=== PATIENT | female | born 1965 | race American Indian/Alaskan Native ===

== ENCOUNTER 2020-11-21 12:06 | Emergency (ER) | payer SELFPAY ==
[2020-11-21 14:07] VITALS: BP 149/71
--- NOTE | 2020-11-21 14:15 | Emergency Department Report ---
ED Headache HPI - General Chief Complaint: Headache Stated Complaint: PAIN IN THE LEFT NONDENOMINATIONAL, BEHIND EAR Time Seen by Provider: 11/21/20 14:03 - History of Present Illness Initial Comments: Patient is a 55-year-old female presents emergency room with complaints of a headache that began 10 days ago. She states it is located in the left frontal, left temporal, and behind the left ear. She states that she has associated rhinorrhea, sinus pressure, feeling like her left ear is clogged. Patient states that she went to another hospital emergency room as was advised that she had sinusitis but it had only been a few days and antibiotic therapy was not recommended at that time and she has been using Mucinex. She states that he does not feel like her symptoms are improving. She states that she has a history of sinus issues and has had to have a sinus surgery in the past. She denies any fever, nausea, vomiting, diarrhea, vision changes, numbness, weakness, neck stiffness. No other past medical history. No allergies to medications. Allergies/Adverse Reactions: Allergies No Known Allergies Allergy (Unverified 11/21/20 13:51) Home Medications: Ambulatory Orders Amoxicillin/Potassium Clav [Augmentin 875-125 Tablet] 1 each PO BID 10 Days #20 tablet 11/21/20 Fluticasone [Flonase] 1 spray NS QDAY #1 bottle 11/21/20 Naproxen [EC-Naproxen] 500 mg PO BID PRN #20 tablet. 11/21/20 ED Review of Systems ROS: Stated complaint: PAIN IN THE LEFT NONDENOMINATIONAL, BEHIND EAR Other details as noted in HPI Comment: All other systems reviewed and negative ED Past Medical Hx - Past Medical History Previous Medical History?: Yes Hx Hypertension: Yes Additional medical history: sinus infection - Surgical History Past Surgical History?: Yes Additional Surgical History: Tonsillectomy, Left ring finger surgery, Left elbow - Social History Smoking Status: Current Every Day Smoker Substance Use Type: Alcohol - Medications Home Medications: Home Medications Medication Instructions Recorded Confirmed Last Taken Type Amoxicillin/Potassium Clav 1 each PO BID 10 Days #20 tablet 11/21/20 Unknown Rx [Augmentin 875-125 Tablet] Fluticasone [Flonase] 1 spray NS QDAY #1 bottle 11/21/20 Unknown Rx Naproxen [EC-Naproxen] 500 mg PO BID PRN #20 tablet. 11/21/20 Unknown Rx ED Physical Exam - General Limitations: No Limitations General appearance: alert, in no apparent distress - Head Head exam: Present: atraumatic, normocephalic, other (no ttp or edema to the bilateral temporal artery region ) - Eye Eye exam: Present: normal appearance - ENT ENT exam: Present: normal orophraynx, mucous membranes moist, TM's normal bilaterally, normal external ear exam, other (mild edema and erythema of the nasal turbinates, ttp to the left frontal sinus) - Neck Neck exam: Present: normal inspection, full ROM. Absent: tenderness, meningismus - Respiratory Respiratory exam: Present: normal lung sounds bilaterally. Absent: respiratory distress, wheezes, rales, rhonchi, stridor, chest wall tenderness, accessory muscle use, decreased breath sounds, prolonged expiratory - Cardiovascular Cardiovascular Exam: Present: regular rate, normal rhythm, normal heart sounds. Absent: systolic murmur, diastolic murmur, rubs, gallop - Neurological Exam Neurological exam: Present: alert, oriented X3, CN II-XII intact, normal gait. Absent: motor sensory deficit - Psychiatric Psychiatric exam: Present: normal affect, normal mood - Skin Skin exam: Present: warm, dry, intact ED Course Vital Signs 11/21/20 13:44 Temperature 98.7 F Pulse Rate 57 L Respiratory 18 Rate Blood Pressure 149/71 O2 Sat by Pulse 100 Oximetry ED Medical Decision Making - Medical Decision Making Patient is a 55-year-old female presents emergency room with complaints of a headache that began 10 days ago. She states it is located in the left frontal, left temporal, and behind the left ear. She states that she has associated rhinorrhea, sinus pressure, feeling like her left ear is clogged. Patient states that she went to another hospital emergency room as was advised that she had sinusitis but it had only been a few days and antibiotic therapy was not recommended at that time and she has been using Mucinex. She states that he does not feel like her symptoms are improving. She states that she has a history of sinus issues and has had to have a sinus surgery in the past. She denies any fever, nausea, vomiting, diarrhea, vision changes, numbness, weakness, neck stiffness. No other past medical history. No allergies to medications. Vitals are stable. On exam:mild edema and erythema of the nasal turbinates, ttp to the left frontal sinus. Examination appears most consistent with acute sinusitis, symptoms have been ongoing greater than 10 days, antibiotic treatment is appropriate at this time. Patient given prescription for medications. Advised patient Please use medication as prescribed. May continue to take Mucinex as needed. Increase your fluid intake. Follow-up with your primary care doctor. Follow-up with earth science technical officer. R eturn to emergency room for any new or worsening symptoms or if symptoms are not improving. Critical care attestation.: If time is entered above; I have spent that time in minutes in the direct care of this critically ill patient, excluding procedure time. ED Disposition Clinical Impression: Acute sinusitis Qualifiers: Sinusitis location: frontal Recurrence: non-recurrent Qualified Code(s): J01.10 - Acute frontal sinusitis, unspecified Disposition: TO HOME OR SELFCARE Is pt being admited?: No Does the pt Need Aspirin: No Condition: Stable Instructions: Sinusitis, Adult, [id number] Additional Instructions: Please use medication as prescribed. May continue to take Mucinex as needed. Increase your fluid intake. Follow-up with your primary care doctor. Follow-up with earth science technical officer. Return to emergency room for any new or worsening symptoms or if symptoms are not improving. Prescriptions: Amoxicillin/Potassium Clav [Augmentin 875-125 Tablet] 1 each PO BID 10 Days #20 tablet Naproxen [EC-Naproxen] 500 mg PO BID PRN #20 tablet.dr ALCANTAR Reason: pain Fluticasone [Flonase] 1 spray NS QDAY #1 bottle Referrals: LEBRON MARTIN MD [Staff Physician] - 2-3 Days NABOR SALGADO MD [Staff Physician] - 2-3 Days [facility] [Provider Group] - 2-3 Days Time of Disposition: 14:13 Print Language: UKRAINIAN
== END 2020-11-21 14:37 | disposition home or self-care (01) ==
LOC: ED 12:06
DX: J01.90 Acute sinusitis, unspecified (principal); I10 Essential (primary) hypertension; F17.200 Nicotine dependence, unspecified, uncomplicated; Z90.89 Acquired absence of other organs; Z72.89 Other problems related to lifestyle; Z79.899 Other long term (current) drug therapy
CPT/HCPCS: 99282

== ENCOUNTER 2021-07-13 06:59 | Emergency (ER) | payer SELFPAY ==
[2021-07-13 08:25] VITALS: BP 183/85
--- NOTE | 2021-07-13 08:29 | Emergency Department Report ---
Chief Complaint: Eye Problems Stated Complaint: HEADACHE/SEEING FLASHES OF LIGHT Time Seen by Provider: 07/13/21 08:28 - HPI History of Present Illness: WOKE UP WITH EYE FLOATER THIS AM NOW GONE IT SCARED HER SO SHE COMES TO ER WEARS GLASSES SEES [place] [facility] NO CHANGE NO TRAUMA DROVE SELF TO ER NO EYE PAIN - ROS Review of Systems: NONE - Exam Vital Signs: Vital Signs 07/13/21 08:22 Temperature 98.4 F Pulse Rate 71 Respiratory 14 Rate Blood Pressure 183/85 O2 Sat by Pulse 100 Oximetry Physical Exam: A/O PERRL EOM INTACT GLOBE INTACT NO SYMPTOMS MSE screening note: Focused history and physical exam performed. Due to findings the following was ordered: MSE TO OPTHAMOLOGY FOR EYE EXAM ED Disposition for MSE Clinical Impression: Floaters Disposition: 01 HOME / SELF CARE / HOMELESS Is pt being admited?: No Does the pt Need Aspirin: No Condition: Stable Referrals: JS COMBS MD [Staff Physician] - 3-5 Days Time of Disposition: 08:29
== END 2021-07-13 19:09 | disposition home or self-care (01) ==
LOC: ED 06:59
DX: H43.399 Other vitreous opacities, unspecified eye (principal)
CPT/HCPCS: 99282

== ENCOUNTER 2021-12-26 09:13 | Emergency (ER) | payer SELFPAY ==
[2021-12-26 09:34] VITALS: BP 141/61
--- NOTE | 2021-12-27 09:38 | Electrocardiograph Report ---
[facility] Test Date: 2021-12-26 Test Time: 09:36:05 Pat Name: GLORIA ALANIS Department: Room: Gender: F [id number] Architect: YONI : 1965 Requested By: KAYA FONTANA Order Number: [id number] Reading MD: Arun Rivas Measurements Intervals [place] Rate: 74 P: 78 TN: 150 QRS: 7 QRSD: 82 T: 49 QT: 428 QTc: 475 Interpretive Statements Sinus rhythm No previous ECG available for comparison Electronically Signed On 12-27-2021 9:38:27 EDT by Arun Rivas
== END 2021-12-26 13:33 | disposition left against medical advice (07) ==
LOC: ED 09:13
DX: R07.9 Chest pain, unspecified (principal); Z53.21 Procedure and treatment not carried out due to patient leaving prior to being seen by health care provider
CPT/HCPCS: 93005